=== PATIENT | male | born 1965 | race American Indian/Alaskan Native ===

== ENCOUNTER 2019-11-14 02:43 | Emergency (ER) | payer MEDICARE, MEDICAID ==
[2019-11-14] MEDS ORDERED: amLODIPine 5 MG TAB ONE (03:16)
[2019-11-14] MEDS ORDERED: amLODIPine 5 MG TAB PO ONE (03:17)
[2019-11-14 03:44] LABS: Basophils % (Auto) 0.4 % (0.0-1.8); Eosinophils % (Auto) 0.6 % (0.0-4.3); Hematocrit 39.7 % (35.5-45.6); Hemoglobin 13.5 gm/dl (11.8-15.2); Lymphocytes # (Auto) 2.6 K/mm3 (1.2-5.4); Lymphocytes % (Auto) 41.6 % (13.4-35.0); Mean Corpuscular HGB Conc 34 % (32-34); Mean Corpuscular Volume 89 fl (84-94); Monocytes # (Auto) 0.9 K/mm3 (0.0-0.8); Monocytes % (Auto) 14.2 % (0.0-7.3); Platelet Count 199 K/mm3 (140-440); Red Blood Count 4.47 M/mm3 (3.65-5.03)
[2019-11-14 04:06] LABS: BUN/Creatinine Ratio 10; Blood Urea Nitrogen 13 mg/dL (9-20); Calcium 9.2 mg/dL (8.4-10.2); Hemolysis Index 9
--- NOTE | 2019-11-14 04:33 | Emergency Department Report ---
- General Chief complaint: Skin/Abscess/Foreign Body Stated complaint: SPIDER BITE ON STOMACH Time Seen by Provider: 11/14/19 03:46 Source: patient Mode of arrival: Ambulatory Limitations: No Limitations - History of Present Illness Initial comments: Patient is a 54-year-old male presents emergency room with complaints of an abscess to the lower abdomen that occurred 3 days ago. He states that he had a small scab there and scratched it. He states he did not feel or see anything bite him. He denies ever having this before. He states that it has been opening and and draining for the past 2 days. He is unsure of his last tetanus immunization. He denies any fever, nausea, vomiting, abdominal pain. He states he has a past medical history of hypertension and takes amlodipine but has not taken it in 2 days because he forgot. - Related Data Home Medications Medication Instructions Recorded Confirmed Last Taken amLODIPine 5 mg PO DAILY 11/14/19 11/14/19 Unknown Previous Rx's Medication Instructions Recorded Last Taken Type Doxycycline Hyclate [Doxycycline 100 mg PO BID 10 Days #20 tablet 11/14/19 Unknown Rx Hyclate TAB] Allergies Allergy/AdvReac Type Severity Reaction Status Date / Time No Known Allergies Allergy Verified 11/14/19 03:14 Abscess Boil HPI - HPI Chief Complaint: Skin/Abscess/Foreign Body Stated Complaint: SPIDER BITE ON STOMACH Time Seen by Provider: 11/14/19 03:46 Home Medications: Home Medications Medication Instructions Recorded Confirmed Last Taken amLODIPine 5 mg PO DAILY 11/14/19 11/14/19 Unknown Previous Rx's Medication Instructions Recorded Last Taken Type Doxycycline Hyclate [Doxycycline 100 mg PO BID 10 Days #20 tablet 11/14/19 Unknown Rx Hyclate TAB] Allergies/Adverse Reactions: Allergies Allergy/AdvReac Type Severity Reaction Status Date / Time No Known Allergies Allergy Verified 11/14/19 03:14 ED Review of Systems ROS: Stated complaint: SPIDER BITE ON STOMACH Other details as noted in HPI Comment: All other systems reviewed and negative ED Past Medical Hx - Past Medical History Previous Medical History?: Yes Hx Hypertension: Yes - Surgical History Past Surgical History?: Yes Additional Surgical History: back, left knee, Left shoulder replacement - Social History Smoking Status: Never Smoker Substance Use Type: None - Medications Home Medications: Home Medications Medication Instructions Recorded Confirmed Last Taken Type Doxycycline Hyclate [Doxycycline 100 mg PO BID 10 Days #20 tablet 11/14/19 Unknown Rx Hyclate TAB] amLODIPine 5 mg PO DAILY 11/14/19 11/14/19 Unknown History ED Physical Exam - General Limitations: No Limitations General appearance: alert, in no apparent distress - Head Head exam: Present: atraumatic, normocephalic - Eye Eye exam: Present: normal appearance - ENT ENT exam: Present: mucous membranes moist - Neurological Exam Neurological exam: Present: alert, oriented X3 - Psychiatric Psychiatric exam: Present: normal affect, normal mood - Skin Skin exam: Present: warm, dry, intact, other (2 cm area of induration to the mid lower abdomen, there is an opening with a small amount of purulent drainage, there is a 6 cm area of surrounding area of erythema and increased warmth, no necrosis, no large area of fluctuance) ED Course Vital Signs 11/14/19 11/14/19 11/14/19 02:57 03:18 05:07 Temperature 98.2 F Pulse Rate 84 84 77 Respiratory 18 17 Rate Blood Pressure 192/115 192/115 Blood Pressure 168/99 [Right] O2 Sat by Pulse 99 99 Oximetry ED Medical Decision Making - Lab Data Result diagrams: 11/14/19 03:19 11/14/19 03:19 Lab Results 11/14/19 11/14/19 Range/Units 03:19 03:19 WBC 6.3 (4.5-11.0) K/mm3 RBC 4.47 (3.65-5.03) M/mm3 Hgb 13.5 (11.8-15.2) gm/dl Hct 39.7 (35.5-45.6) % MCV 89 (84-94) fl MCH 30 (28-32) pg MCHC 34 (32-34) % RDW 14.0 (13.2-15.2) % Plt Count 199 (140-440) K/mm3 Lymph % (Auto) 41.6 H (13.4-35.0) % Hughes % (Auto) 14.2 H (0.0-7.3) % Eos % (Auto) 0.6 (0.0-4.3) % Baso % (Auto) 0.4 (0.0-1.8) % Lymph # 2.6 (1.2-5.4) K/mm3 Hughes # 0.9 H (0.0-0.8) K/mm3 Eos # 0.0 (0.0-0.4) K/mm3 Baso # 0.0 (0.0-0.1) K/mm3 Seg Neutrophils % 43.2 (40.0-70.0) % Seg Neutrophils # 2.7 (1.8-7.7) K/mm3 Sodium 140 (137-145) mmol/L Potassium 3.6 (3.6-5.0) mmol/L Chloride 100.5 (98-107) mmol/L Carbon Dioxide 27 (22-30) mmol/L Anion Gap 16 mmol/L BUN 13 (9-20) mg/dL Creatinine 1.3 (0.8-1.5) mg/dL Estimated GFR > 60 ml/min BUN/Creatinine Ratio 10 % Glucose 124 H (75-100) mg/dL Calcium 9.2 (8.4-10.2) mg/dL - Medical Decision Making Patient is a 54-year-old male presents emergency room with complaints of an abscess to the lower abdomen that occurred 3 days ago. He states that he had a small scab there and scratched it. He states he did not feel or see anything bite him. He denies ever having this before. He states that it has been opening and and draining for the past 2 days. He is unsure of his last tetanus immunization. He denies any fever, nausea, vomiting, abdominal pain. He states he has a past medical history of hypertension and takes amlodipine but has not taken it in 2 days because he forgot. Vitals with elevated blood pressure otherwise normal. Patient's blood pressure improved after administration of his home medication. On exam: 2 cm area of induration to the mid lower abdomen, there is an opening with a small amount of purulent drainage, there is a 6 cm area of surrounding area of erythema and increased warmth, no necrosis, no large area of fluctuance. labs are stable. No leukocytosis. pt given tetanus immunization and IM clindamycin. Appears to be open and draining abscess with surrounding cellulitis. Patient given prescription for doxycycline. advised pt to please take medication as prescribed to completion. Please use warm compresses 3 times a day. Please keep area clean, dry, covered. May wash with soap and water and immediately dry. Follow-up with a primary care doctor in the next 3 days for reexamination. It is very important that you follow-up with a primary care doctor to have this area reexamined. Return to the emergency room immediately for any new or worsening symptoms or if symptoms are not improving despite antibiotic therapy. Advised patient that if he had increased drainage, fever, chills, vomiting, increased redness, increased swelling that he needed to return to the emergency room immediately Critical care attestation.: If time is entered above; I have spent that time in minutes in the direct care of this critically ill patient, excluding procedure time. ED Disposition Clinical Impression: Abscess Cellulitis Qualifiers: Site of cellulitis: trunk Site of cellulitis of trunk: abdominal wall Qualified Code(s): L03.311 - Cellulitis of abdominal wall Disposition: TO HOME OR SELFCARE Is pt being admited?: No Does the pt Need Aspirin: No Condition: Stable Instructions: Cellulitis (ED), Abscess (ED) Additional Instructions: please take medication as prescribed to completion. Please use warm compresses 3 times a day. Please keep area clean, dry, covered. May wash with soap and water and immediately dry. Follow-up with a primary care doctor in the next 3 days for reexamination. It is very important that you follow-up with a primary care doctor to have this area reexamined. Return to the emergency room immediately for any new or worsening symptoms or if symptoms are not improving despite antibiotic therapy. Prescriptions: Doxycycline Hyclate [Doxycycline Hyclate TAB] 100 mg PO BID 10 Days #20 tablet Referrals: CELINA FERNÁNDEZ MD [Primary Care Provider] - 2-3 Days [facility] [Outside] - 2-3 Days Time of Disposition: 04:33 Print Language: MALAGASY
[2019-11-14] MEDS ORDERED: CLINDAMYCIN 150 MG/ML VIAL 6 ML IM ONE (04:35)
[2019-11-14] MEDS ORDERED: TETANUS,DIPH,PERTUSS(ACELL) VACCINE 0.5 ML SYRINGE IM ONE (04:35)
[2019-11-14 05:10] VITALS: BP 168/99
== END 2019-11-14 05:08 | disposition home or self-care (01) ==
LOC: ED 02:43
DX: L02.211 Cutaneous abscess of abdominal wall (principal); L03.311 Cellulitis of abdominal wall; I10 Essential (primary) hypertension
CPT/HCPCS: 36415; 80048; 85025; 90471; 90715; 96372; 99283